=== PATIENT | female | born 1985 | race Caucasian/White ===

== ENCOUNTER 2023-10-15 22:55 | Inpatient (IN) | payer OTHER, SELFPAY ==
[2023-10-15 12:53] VITALS: BP 157/96
[2023-10-15 14:30] VITALS: BP 170/108
[2023-10-15 14:51] VITALS: BMI 17.2
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
[2023-10-15 15:37] LABS: % Basophils 0.2 % (0-2); % Immature Granulocytes 0.2 % (0-0.5); % Lymphocytes 24.9 % (20.5-51.1); % Neutrophils 63.7 % (42.2-75.2); Absolute Monocytes 0.9 10^3/uL (0.1-0.6); Absolute Neutrophils 5.2 10^3/uL (1.4-6.5); Hematocrit 35.1 % (37.0-47.0); Hemoglobin 12.5 g/dL (12.0-16.0); Mean Corp Hgb Conc. 35.6 g/dL (33.0-37.0); Mean Corpuscular Hgb 31.7 pg (27.0-31.0); Mean Corpuscular Volume 89.1 fL (81.0-99.0); Mean Platelet Volume 8.7 fL (7.4-10.4); Nucleated Red Blood Cells % 0 %; Platelet Count 213 10^3/uL (130-400); Red Blood Cell Count 3.94 10^6/uL (4.20-5.40); Red Cell Dist. Width 13.7 % (11.5-14.5); White Blood Cell Count 8.1 10^3/uL (4.8-10.8)
[2023-10-15] MEDS: THIAMINE INJECTION 100 MG IV (15:41)
[2023-10-15] MEDS: ZOFRAN 4 MG IV ×2 (15:41→22:07)
[2023-10-15] MEDS: ATIVAN 1 MG IV ×2 (15:44→20:46)
[2023-10-15] MEDS: NSS 1000 IV (15:44)
[2023-10-15 15:54] LABS: HCG, Serum Qualitative Screen Negative
[2023-10-15 16:00] LABS: ALT (SGPT) 18 U/L (0-35); AST (SGOT) 33 U/L (14-36); Albumin 4.6 g/dl (3.5-5.0); Alkaline Phosphatase 79 U/L (38-126); Blood Urea Nitrogen 3 mg/dl (7-17); Calcium 8.6 mg/dl (8.4-10.2); Carbon Dioxide 27 mmol/L (22-30); Chloride 99 mmol/L (98-107); Estimated Creatinine Clearance 83 ml/min; Glucose 134 mg/dl (70-99); Lipase 53 U/L (23-300); Magnesium 1.7 mg/dl (1.6-2.3); Potassium 3.3 mmol/L (3.5-5.1); Sodium 136 mmol/L (135-145); Total Bilirubin 0.3 mg/dl (0.2-1.3); Total Protein 7.7 g/dl (6.3-8.2); eGFR > 60.00
[2023-10-15 16:12] LABS: Alcohol 434 mg/dl
[2023-10-15] MEDS: KCL 40 MEQ PO (16:18)
[2023-10-15] MEDS: NICODERM TRANSDERMAL 14 MG TRANSDERM (17:05)
[2023-10-15 20:41] VITALS: BP 150/108
[2023-10-15 21:45] VITALS: BP 121/96
[2023-10-15 22:00] VITALS: BP 122/91
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
[2023-10-15 23:00] VITALS: BP 126/91
[2023-10-15] MEDS: ATIVAN 1 MG PO (23:17)
[2023-10-15] MEDS: PHENOBARBITAL 104 MG IV (23:32)
[2023-10-16] VITALS (12 sets, daily range): BP systolic 117–147; BP diastolic 77–111; BMI 18.1
[2023-10-16 01:10] LABS: Troponin I < 0.012 ng/ml
--- NOTE | 2023-10-16 01:26 | PTCARENOTE ---
Received pt from ED via stretcher. Pt able to ambulate to bed with assistance. Pt unsteady on feet. Pt appears drowsy but orientedx3. MSAS currently 5. 1mg PO Ativan administered per protocol (see MAR). Pt ordered 1:1 suicide risk. When asked
if currently having any SI, she states 'I don't think I should talk about that'. Pt is allowed to have phone; wearing the blue suicide scrubs instead of hospital gown for safety. Pt c/o nausea but no vomiting. 1:1 at bedside and pt resting in bed
calmly.
[2023-10-16] MEDS: ZOFRAN 4 MG IV ×4 (01:33→22:47)
[2023-10-16] MEDS: ATIVAN 1 MG PO ×3 (01:33→12:57)
[2023-10-16] MEDS: NSS 1000 IV ×2 (01:33→15:48)
[2023-10-16] MEDS: TYLENOL 650 MG PO (03:21)
[2023-10-16 03:36] LABS: % Basophils 0.3 % (0-2); % Eosinophils 0.4 % (0-6); % Immature Granulocytes 0.3 % (0-0.5); % Lymphocytes 22.8 % (20.5-51.1); % Monocytes 10.2 % (1.7-9.3); Absolute Lymphocytes 1.6 10^3/uL (1.2-3.4); Absolute Monocytes 0.7 10^3/uL (0.1-0.6); Absolute Neutrophils 4.5 10^3/uL (1.4-6.5); Hematocrit 32.3 % (37.0-47.0); Mean Corp Hgb Conc. 34.1 g/dL (33.0-37.0); Mean Corpuscular Hgb 31.3 pg (27.0-31.0); Mean Platelet Volume 8.9 fL (7.4-10.4); Nucleated Red Blood Cells % 0 %; Platelet Count 193 10^3/uL (130-400); Red Blood Cell Count 3.51 10^6/uL (4.20-5.40); Red Cell Dist. Width 13.7 % (11.5-14.5); White Blood Cell Count 6.9 10^3/uL (4.8-10.8)
[2023-10-16 03:47] LABS: Lactic Acid 1.5 mmol/L (0.7-2.0)
[2023-10-16 04:04] LABS: Magnesium 1.4 mg/dl (1.6-2.3)
[2023-10-16 04:05] LABS: ALT (SGPT) 16 U/L (0-35); AST (SGOT) 30 U/L (14-36); Albumin 3.8 g/dl (3.5-5.0); Alkaline Phosphatase 72 U/L (38-126); Blood Urea Nitrogen 3 mg/dl (7-17); Calcium 8.2 mg/dl (8.4-10.2); Carbon Dioxide 25 mmol/L (22-30); Chloride 100 mmol/L (98-107); Estimated Creatinine Clearance 97 ml/min; Glucose 86 mg/dl (70-99); Potassium 3.8 mmol/L (3.5-5.1); Sodium 132 mmol/L (135-145); Total Bilirubin 0.4 mg/dl (0.2-1.3); Total Protein 6.6 g/dl (6.3-8.2); eGFR > 60.00
[2023-10-16] MEDS: MAGNESIUM SULFATE 100 IV (05:10)
[2023-10-16] MEDS: PHENOBARBITAL 97.5 MG IV ×3 (07:13→22:37)
[2023-10-16] MEDS: NSS (PRESERVATIVE FREE) 10 ML IV (07:16)
[2023-10-16] MEDS: PROTONIX IV 40 MG IV (07:16)
[2023-10-16] MEDS: THIAMINE INJECTION 200 MG IV ×2 (07:20→19:30)
--- NOTE | 2023-10-16 07:55 | W.PN.HOSP.TC ---
Today's Communication/Plan
-
alcohol withdrawal protocol
F/U further psychiatry recommendations
Assessment / Plan
Assessment / Plan
38-year-old female past medical history of alcohol abuse, PTSD, here for medical clearance for alcohol detox.� She has been drinking 1.5 L of vodka per day.� Her last drink was at 12 PM.
# Alcohol withdrawal
-Alcohol level 434
-Phenobarbital protocol
-Alcohol withdrawal protocol
-Thiamine and folate
-IV fluids
-Case management consulted
# Hypokalemia
# Hypomagnesemia
-replete
# Passive suicidal ideation
-Non suicidal currently
-One-to-one sitter
-Psychiatry consulted
# Chest pain likely musculoskeletal
-EKG shows possible ectopic rhythm
-Check troponin --> negative
# Abdominal pain likely alcoholic gastritis
-Empiric Protonix for alcoholic gastritis
PTSD
-Not taking any of her psychiatric medications, continue to hold
Active smoker
-Nicotine patch
Marijuana user
Full code
DVT prophylaxis�heparin
Regular diet
Anticipated Discharge: 24 - 48 hours
Subjective/Interval History
-
Date of Service: October 16, 2023
feels better today, remains sedated from ativan
Objective Data
-
Labs:
Laboratory Results
10/16/23
03:25
WBC 6.9
Hgb 11.0 L
Hct 32.3 L
Plt Count 193
Sodium 132 L
Potassium 3.8
Chloride 100
Carbon Dioxide 25
BUN 3 L
Creatinine 0.5 L
Glucose 86
Calcium 8.2 L
Total Bilirubin 0.4
AST 30
ALT 16
Alkaline Phosphatase 72
Vital Signs:
Vital Signs
Temp Pulse Resp BP Pulse Ox
100.5 F H 92 18 117/77 95
10/16/23 03:24 10/16/23 06:00 10/16/23 06:00 10/16/23 06:00 10/16/23 06:00
Review of Systems
-
History Source: Patient
All other systems: Reviewed and negative
Physical Exam
-
General: Other (sedated but arousable )
Respiratory: Clear to Auscultation; Negative Wheezes
Cardiac: S1/S2
GI: Soft and Nontender
Skin: Warm and Dry; Negative Rash
Neuro: Sedated
Psych: Calm
Data Reviewed
-
Diagnostic Radiology: Report Reviewed by me
Labs: Labs Reviewed by me
[2023-10-16] MEDS: HEPARIN 5000 UNITS SC ×2 (09:09→19:30)
[2023-10-16] MEDS: MAGNESIUM SULFATE 50 IV (09:09)
[2023-10-16] MEDS: FOLVITE 1 MG PO (09:14)
[2023-10-16] MEDS: NICODERM TRANSDERMAL 14 MG TRANSDERM (09:14)
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
--- NOTE | 2023-10-16 11:32 | PTCARENOTE ---
Pt seen by Psych one to one dc
--- NOTE | 2023-10-16 13:08 | PTCARENOTE ---
counseling case manager spoke with pt, pt became anxious
--- NOTE | 2023-10-16 15:21 | CM ---
Patient with Hx PTSD with Dx Alcohol withdrawal, Passive suicidal ideation, Chest pain likely musculoskeletal, Abdominal pain likely alcoholic gastritis. Tox Screen- Etoh 434. Psych Consult noted. Room air. Receiving IVF, IV Phenobarb, IV Ativan
prn. MSAS protocol. Unsteady on her feet per nursing.
Met with patient;
the patient is homeless and has been staying at [facility] in [place] with her jessy Ball for about one week.
The patient says she has the finances to return to [facility] at discharge.
The patient has been independent in ADLs and ambulation.
She has no DME or VN.
The patient has a Gastroenterology Manager Allie through [facility] an agency in place due to her child in foster care.
Patient stated she became anxious after briefly talking and requested nurse due to feeling anxious---> nurse notified. CM ended interview as patient seems emotionally fragile and patient in agreement.
Request to Dr Rosario for PT Eval.
Plan follow up after PT Eval.
Plan d/c to [facility].
[2023-10-16] MEDS: ATIVAN 2 MG IV (15:40)
--- NOTE | 2023-10-16 22:49 | PTCARENOTE ---
Received pt at change of shift. Pt impulsive at start of shift in regard to getting out of bed without assistance to use the bathroom. Pt unsteady on feet and almost tore out her IV in the process. Educated the pt on the importance of using the
call silvestre before getting out of bed for safety reasons.. Pt states she understands. Pt calm and able to follow direction when given. Slightly diaphoretic, mild tremors, and anxious. MSAS 5 at start of shift. Pt resting in bed with call silvestre in
reach.
[2023-10-17] VITALS (13 sets, daily range): BP systolic 128–147; BP diastolic 87–109; PULSE 96
[2023-10-17] MEDS: NSS 1000 IV (04:56)
[2023-10-17 05:20] LABS: Blood Urea Nitrogen < 2 mg/dl (7-17); Calcium 8.5 mg/dl (8.4-10.2); Carbon Dioxide 27 mmol/L (22-30); Chloride 97 mmol/L (98-107); Estimated Creatinine Clearance 97 ml/min; Glucose 79 mg/dl (70-99); Magnesium 1.7 mg/dl (1.6-2.3); Phosphorus 3.6 mg/dl (2.5-4.5); Potassium 4.4 mmol/L (3.5-5.1); Sodium 130 mmol/L (135-145); eGFR > 60.00
--- NOTE | 2023-10-17 07:53 | W.PN.HOSP.TC ---
Today's Communication/Plan
-
see plan
Assessment / Plan
Assessment / Plan
38-year-old female past medical history of alcohol abuse, PTSD, here for medical clearance for alcohol detox.� She has been drinking 1.5 L of vodka per day.� Her last drink was at 12 PM.
# Alcohol withdrawal
-Alcohol level 434
-Phenobarbital protocol
-Alcohol withdrawal protocol
-Thiamine and folate
-IV fluids
-Case management consulted
-psychiatry consult appreciated
-patient willing to go to inpatient rehab
# Hypokalemia
# Hypomagnesemia
-repleted
Hyponatremia
-stop further fluids and monitor
# Passive suicidal ideation
-Non suicidal currently
-One-to-one sitter
-Psychiatry consulted
# Chest pain likely musculoskeletal
-EKG shows possible ectopic rhythm
-Check troponin --> negative
# Abdominal pain likely alcoholic gastritis
-Empiric Protonix for alcoholic gastritis
PTSD
-Not taking any of her psychiatric medications, continue to hold
Active smoker
-Nicotine patch
Marijuana user
Full code
DVT prophylaxis�heparin
Regular diet
Anticipated Discharge: 24 - 48 hours
Subjective/Interval History
-
Date of Service: October 17, 2023
patient feels tired but okay
wants to go to inpatient rehab
Objective Data
-
Labs:
Laboratory Results
10/17/23
04:17
Sodium 130 L
Potassium 4.4
Chloride 97 L
Carbon Dioxide 27
BUN < 2 L
Creatinine 0.5 L
Glucose 79
Calcium 8.5
Vital Signs:
Vital Signs
Temp Pulse Resp BP Pulse Ox
98.3 F 78 17 139/100 98
10/17/23 06:45 10/17/23 06:00 10/17/23 06:00 10/17/23 06:00 10/16/23 18:00
I&O
10/16/23 10/17/23 10/18/23
06:59 06:59 06:59
Intake Total 1929
Balance 1929
Review of Systems
-
History Source: Patient
All other systems: Reviewed and negative
Physical Exam
-
General: Other (sedated but arousable )
Respiratory: Clear to Auscultation; Negative Wheezes
Cardiac: S1/S2
GI: Soft and Nontender
Skin: Warm and Dry; Negative Rash
Neuro: Sedated
Psych: Calm
Data Reviewed
-
Diagnostic Radiology: Report Reviewed by me
Labs: Labs Reviewed by me
[2023-10-17] MEDS: ZOFRAN 4 MG IV (08:21)
[2023-10-17] MEDS: THIAMINE INJECTION 200 MG IV ×2 (08:21→19:36)
[2023-10-17] MEDS: HEPARIN 5000 UNITS SC ×2 (08:22→19:39)
[2023-10-17] MEDS: FOLVITE 1 MG PO (08:22)
[2023-10-17] MEDS: PROTONIX IV 40 MG IV (08:22)
[2023-10-17] MEDS: PHENOBARBITAL 97.5 MG IV ×3 (08:22→22:23)
[2023-10-17] MEDS: NICODERM TRANSDERMAL 14 MG TRANSDERM (08:22)
[2023-10-17] MEDS: NSS (PRESERVATIVE FREE) 10 ML IV (08:22)
[2023-10-17] MEDS: ATIVAN 1 MG PO ×2 (12:21→20:03)
--- NOTE | 2023-10-17 13:05 | CM ---
Addendum entered by Brie Perry RN 10/17/23 17:31:
Spoke with patient about housing. She has the [facility] information and already reached out to them. She has also contacted [facility] and they were not able to help her. Her boyfriend is also looking into housing resources.
Plan referral to [facility] when medically cleared.
Original Note:
Patient with Hx PTSD with Dx Alcohol withdrawal, Passive suicidal ideation, Chest pain likely musculoskeletal, Abdominal pain likely alcoholic gastritis. Tox Screen- Etoh 434. Psych Consult noted. Room air. Receiving IVF, IV Phenobarb, IV Ativan
prn. MSAS protocol. PT Eval pending.
Met with patient and offered EPIFANIO and patient agreed to the referral. She said that she has a Mobile Engagement/MES Worker Mady from [facility] [place] who was helping her get into [facility]. She agrees to a referral to [facility].
Patient called DINESH Earl on speaker phone, while CM was in the room; informed her that we will be making a referral to [facility].
Spoke with EPIFANIO Garrett; she saw the patient today who agreed to [facility] followed by [facility] [place].
Spoke with nurse Joanie; patient still unsteady on her feet when up to bathroom.
Spoke with QUE Alonso; she will see the patient today.
Spoke with [facility] ph [phone] (dual Dx program) ; they do have an available female bed and can take her referral for psych/Etoh rehab whenever she is medically cleared. Alexandra prefers CM wait to make the referral when
medically cleared.
Message to Blessing Rosario & Onel that [facility] is interested and can make referral once medically cleared.
Plan referral to [facility] when medically cleared.
--- NOTE | 2023-10-17 14:15 | W.PN.UPDATE ---
Update Note
Progress Note Update
patient seen chart reviewed.discussed w nursing patient was with her out pt d and a counselor when i first arrived and seemed very comfortable and supported with her. she is doing relatively well although still in the throes of withdrawal needing
multiple doses of ativan and still on phenobarb taper. she is very much interested in going to in pt rehab. [facility] tent[facility] accepted her but she is still a little unsteady and needs more time for w/d process. would continue to hold off on
wellbutrin at this point. discussed w patient the importance of working on identifying relapse triggers and developing a plan to deal with them. psych will follow
--- NOTE | 2023-10-17 19:24 | PTCARENOTE ---
Assumed care of patient at beginning of this shift from previous RN. MSAS continued Q4h; required ativan only 1 time this shift. Worked with PT; now has a steady gait. Patient remained cooperative and pleasant throughout shift. See worklist for full
assessment, MSAS and vital signs; see MAR for med administration.
[2023-10-18] VITALS (10 sets, daily range): BP systolic 109–124; BP diastolic 80–108
[2023-10-18 04:37] LABS: Blood Urea Nitrogen 4 mg/dl (7-17); Calcium 8.8 mg/dl (8.4-10.2); Carbon Dioxide 24 mmol/L (22-30); Chloride 100 mmol/L (98-107); Estimated Creatinine Clearance 97 ml/min; Glucose 83 mg/dl (70-99); Magnesium 1.6 mg/dl (1.6-2.3); Sodium 130 mmol/L (135-145); eGFR > 60.00
--- NOTE | 2023-10-18 07:27 | W.PN.HOSP.TC ---
Today's Communication/Plan
-
alcohol withdrawal protocol
phenobarb taper
transfer to tele
Assessment / Plan
Assessment / Plan
38-year-old female past medical history of alcohol abuse, PTSD, here for medical clearance for alcohol detox.� She has been drinking 1.5 L of vodka per day.� Her last drink was at 12 PM.
# Alcohol withdrawal
-Alcohol level 434
-Phenobarbital protocol
-Alcohol withdrawal protocol
-Thiamine and folate
-IV fluids off
-Case management consulted
-psychiatry consult appreciated
-patient willing to go to inpatient rehab
-OK for transfer to tele
# Hypokalemia
# Hypomagnesemia
-repleted
Hyponatremia
-stop further fluids and monitor
# Passive suicidal ideation
-Non suicidal currently
-One-to-one sitter
-Psychiatry consulted
# Chest pain likely musculoskeletal
-EKG shows possible ectopic rhythm
-Check troponin --> negative
# Abdominal pain likely alcoholic gastritis
-Empiric Protonix for alcoholic gastritis
PTSD
-Not taking any of her psychiatric medications, continue to hold
Active smoker
-Nicotine patch
Marijuana user
Full code
DVT prophylaxis�heparin
Regular diet
Anticipated Discharge: 24 - 48 hours
Subjective/Interval History
-
Date of Service: October 18, 2023
required ativan last night
interested in inpatient rehab
Objective Data
-
Labs:
Laboratory Results
10/18/23
03:29
Sodium 130 L
Potassium 4.0
Chloride 100
Carbon Dioxide 24
BUN 4 L
Creatinine 0.4 L
Glucose 83
Calcium 8.8
Vital Signs:
Vital Signs
Temp Pulse Resp BP Pulse Ox
97.6 F 71 18 124/92 98
10/18/23 03:35 10/18/23 05:13 10/18/23 05:13 10/18/23 05:13 10/18/23 05:35
I&O
10/17/23 10/18/23 10/19/23
06:59 06:59 06:59
Intake Total 1929
Balance 1929
Review of Systems
-
History Source: Patient
All other systems: Reviewed and negative
Physical Exam
-
General: Other (sedated but arousable )
Respiratory: Clear to Auscultation; Negative Wheezes
Cardiac: S1/S2
GI: Soft and Nontender
Skin: Warm and Dry; Negative Rash
Neuro: Sedated
Psych: Calm
Data Reviewed
-
Diagnostic Radiology: Report Reviewed by me
Labs: Labs Reviewed by me
[2023-10-18] MEDS: MAGNESIUM SULFATE 50 IV (09:53)
[2023-10-18] MEDS: NICODERM TRANSDERMAL 14 MG TRANSDERM (09:54)
[2023-10-18] MEDS: FOLVITE 1 MG PO (09:54)
[2023-10-18] MEDS: PROTONIX IV 40 MG IV (09:55)
[2023-10-18] MEDS: HEPARIN 5000 UNITS SC ×2 (09:55→21:10)
[2023-10-18] MEDS: THIAMINE INJECTION 200 MG IV ×2 (09:55→21:10)
[2023-10-18] MEDS: NSS (PRESERVATIVE FREE) 10 ML IV (09:55)
[2023-10-18] MEDS: LUMINAL 64.7999999999999972 MG PO ×3 (12:06→21:07)
--- NOTE | 2023-10-18 13:39 | PTCARENOTE ---
Patient is for transfer to Tele today. Patient is oriented, compliant with plan of care, anxious at times. Educated about plan of care, she verbalized understanding and stated that she is going to another facility for rehab. Shower completed today.
Patient has fair appetite. MSAS per protocol.
--- NOTE | 2023-10-18 15:50 | PTCARENOTE ---
Patient received in room 421 from IMU. Patient oriented to room. Call silvestre in reach.
--- NOTE | 2023-10-18 16:02 | PTCARENOTE ---
Report for transfer given to Enma QUINN. Patient transported by RN to room 421 on telemetry monitoring. All belongings in room sent with patient. Security returned belongings to patient with the exception of a box of cigarettes. Endorsed to Enma QUINN.
[2023-10-18] MEDS: MELATONIN 3 MG PO (21:44)
[2023-10-19 02:50] VITALS: BP 118/84
[2023-10-19 06:44] LABS: Blood Urea Nitrogen 11 mg/dl (7-17); Calcium 9.2 mg/dl (8.4-10.2); Carbon Dioxide 26 mmol/L (22-30); Chloride 99 mmol/L (98-107); Glucose 88 mg/dl (70-99); Magnesium 1.6 mg/dl (1.6-2.3); Potassium 4.1 mmol/L (3.5-5.1); Sodium 131 mmol/L (135-145)
[2023-10-19 06:53] LABS: Estimated Creatinine Clearance 97 ml/min; eGFR > 60.00
[2023-10-19 07:00] VITALS: BP 135/85
[2023-10-19] MEDS: PROTONIX IV 40 MG IV (10:41)
[2023-10-19] MEDS: NSS (PRESERVATIVE FREE) 10 ML IV (10:42)
[2023-10-19] MEDS: LUMINAL 64.7999999999999972 MG PO (10:43)
[2023-10-19] MEDS: VITAMIN B1 100 MG PO ×2 (10:44→20:22)
[2023-10-19] MEDS: FOLVITE 1 MG PO (10:44)
[2023-10-19] MEDS: HEPARIN 5000 UNITS SC ×2 (10:49→20:21)
[2023-10-19] MEDS: NICODERM TRANSDERMAL 14 MG TRANSDERM (10:51)
[2023-10-19] MEDS: FLUSH (NSS) 1 FLUSH IV (10:51)
[2023-10-19 11:00] VITALS: BP 119/82
--- NOTE | 2023-10-19 12:06 | W.PN.HOSP.TC ---
Today's Communication/Plan
-
phenobarb taper
psych recs for resuming home regimen
hopefully inpatient rehab in next 1-2 days
Assessment / Plan
Assessment / Plan
38-year-old female past medical history of alcohol abuse, PTSD, here for medical clearance for alcohol detox.� She has been drinking 1.5 L of vodka per day.� Her last drink was at 12 PM.
# Alcohol withdrawal
-Alcohol level 434
-Phenobarbital protocol --> will decrease dose today x 2 more doses so patient completes course sooner and can hopefully go to inpatient rehab in next 1-2 days
-MSAS, patient has not required ativan in over 24 hours
-Thiamine and folate
-IV fluids off
-Case management consulted
-psychiatry consult appreciated
-patient willing to go to inpatient rehab
-OK for transfer to tele
# Hypokalemia
# Hypomagnesemia
-repleted
Hyponatremia
-stop further fluids and monitor
PTSD
Passive suicidal ideation
-Non suicidal currently
-Psychiatry consult appreciated
-her BILINGUAL ACCOUNT MANAGER meds have been held - F/U psych recs on resuming
# Chest pain likely musculoskeletal
-EKG shows possible ectopic rhythm
-Check troponin --> negative
# Abdominal pain likely alcoholic gastritis
-Empiric Protonix for alcoholic gastritis
Active smoker
-Nicotine patch
Marijuana user
Full code
DVT prophylaxis�heparin
Regular diet
Anticipated Discharge: 24 - 48 hours
Subjective/Interval History
-
Date of Service: October 19, 2023
feels depressed
no tremors
no chest pain or shortness of breath
Objective Data
-
Labs:
Laboratory Results
10/19/23
05:56
Sodium 131 L
Potassium 4.1
Chloride 99
Carbon Dioxide 26
BUN 11
Creatinine 0.6
Glucose 88
Calcium 9.2
Vital Signs:
Vital Signs
Temp Pulse Resp BP Pulse Ox
98.1 F 77 16 119/82 100
10/19/23 11:00 10/19/23 11:00 10/19/23 11:00 10/19/23 11:00 10/19/23 11:00
I&O
10/18/23 10/19/23 10/20/23
06:59 06:59 06:59
Intake Total 70 / 70 600 / 600
Balance 70 / 70 600 / 600
Review of Systems
-
History Source: Patient
All other systems: Reviewed and negative
Physical Exam
-
General: Other (sedated but arousable, more conversant today )
Respiratory: Clear to Auscultation; Negative Wheezes
Cardiac: S1/S2
GI: Soft and Nontender
Skin: Warm and Dry; Negative Rash
Neuro: Sedated
Psych: Calm
Data Reviewed
-
Diagnostic Radiology: Report Reviewed by me
Labs: Labs Reviewed by me
[2023-10-19 16:59] VITALS: BP 137/88
[2023-10-19] MEDS: LUMINAL 32.3999999999999986 MG PO ×2 (18:09→23:39)
[2023-10-19 19:00] VITALS: BP 112/80
--- NOTE | 2023-10-19 19:27 | W.PN.UPDATE ---
Update Note
Progress Note Update
Pt seen & evaluated at bedside. Discussed prior medication hx as all outpt meds have been held due to pt not taking them for several weeks. Describes hx of periods of few days to a week (at most) at a time of decreased need for sleep, increased
energy, increased talkativeness, impulsivity, risk taking, euphoria - noticed by others & always followed by a severe depression.
Reports good response to Haldol but with significant EPS, had to take both benadryl & cogentin with it. Was prescribed seroquel 125mg, minimal benefit but when took 100mg TID found this improved mood stability partially, denies feeling sedated on
it. Discussed that seroquel can be titrated to higher dose so given known positive response would resume & titrate up as needed/tolerated. Appetite did increase but pt wants to gain some weight - is aware of metabolic disturbance risk.
Also found prazosin 1mg helpful for sleep (improved nightmares) though eventually stopped working - discused trial of 2mg , discussed risk of orthostasis.
Phenobarb taper accelerated as no signs of w/d and pt cannot go to rehab until off phenobarb
seroquel 100mg TID + prazosin 2mg HS
seroquel 25mg BID PRN anxiety/distress + hydroxyzine 50mg BID PNR anxiety (was previously taki ng 100mg PRN but would not add on such high load at this time)
remains open to rehab placement for EtOH abuse
[2023-10-19] MEDS: ZOFRAN 4 MG IV (20:29)
[2023-10-19 23:00] VITALS: BP 119/84
[2023-10-19] MEDS: MINIPRESS 2 MG PO (23:39)
[2023-10-19] MEDS: SEROQUEL 100 MG PO (23:41)
[2023-10-20 03:00] VITALS: BP 91/59
[2023-10-20] MEDS: FOLVITE 1 MG PO (07:55)
[2023-10-20] MEDS: HEPARIN 5000 UNITS SC (07:55)
[2023-10-20] MEDS: NICODERM TRANSDERMAL 14 MG TRANSDERM (08:01)
[2023-10-20] MEDS: VITAMIN B1 100 MG PO (08:02)
[2023-10-20] MEDS: NSS (PRESERVATIVE FREE) 10 ML IV (08:02)
[2023-10-20] MEDS: SEROQUEL 100 MG PO ×2 (08:02→16:11)
[2023-10-20] MEDS: PROTONIX IV 40 MG IV (08:02)
[2023-10-20 08:03] VITALS: BP 104/71
--- NOTE | 2023-10-20 08:42 | W.PN.HOSP.TC ---
Today's Communication/Plan
-
Discharge today
Assessment / Plan
Assessment / Plan
Physical Exam
General: Not in acute distress
Respiratory: Clear to Auscultation; Negative Wheezes
Cardiac: S1/S2
GI: Soft and Nontender. Positive bowel sounds.
Skin: Warm and Dry.
Neuro: Alert and Awake. Appropriately responding to questions.
Psych: Calm

Assessment/Plan
# Alcohol withdrawal
-Alcohol level 434
-Phenobarbital protocol --> completed phenobarb taper
-MSAS protocol
-Thiamine and folate
-IV fluids off
-Case management consulted
-psychiatry consult appreciated
-patient willing to go to inpatient rehab
# Hypokalemia
# Hypomagnesemia
-repleted
#Hyponatremia
-stop further fluids and monitor
#PTSD
#Passive suicidal ideation
-Non suicidal currently
-Psychiatry consult appreciated
-her VICE PRESIDENT OF ADVERTISING meds have been held
-Per psychiatry: seroquel 100mg TID + prazosin 2mg HS
-Also per psychiatry: seroquel 25mg BID PRN anxiety/distress + hydroxyzine 50mg BID PRN anxiety (was previously taking 100mg PRN but would not add on such high load at this time)
# Chest pain likely musculoskeletal
-EKG shows possible ectopic rhythm
-Checked troponin --> negative
# Abdominal pain likely alcoholic gastritis
-Empiric Protonix for alcoholic gastritis
#Active smoker
-Nicotine patch
#Marijuana user
Full code
DVT prophylaxis�heparin
Regular diet
More than 30 minutes spent in discharge including
Final examination of the patient
Summarizing hospital stay
Instructions for continuing care to all relevant caregivers
Preparation of discharge records, prescriptions, and referral forms
Total time spent (in minutes): 41
Anticipated Discharge: Today
Subjective/Interval History
-
Date of Service: October 20, 2023
Patient was seen and examined. She reported no new symptoms or complaints.
Objective Data
-
Vital Signs:
Vital Signs
Temp Pulse Resp BP Pulse Ox
97.7 F 77 16 91/59 98
10/20/23 03:00 10/20/23 03:00 10/20/23 03:00 10/20/23 03:00 10/20/23 03:00
I&O
10/19/23 10/20/23 10/21/23
06:59 06:59 06:59
Intake Total 600 / 600 1680 / 1680
Balance 600 / 600 1680 / 1680
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
--- NOTE | 2023-10-20 11:56 | W.PN.UPDATE ---
Update Note
Progress Note Update
Pt seen, chart reviewed. Pt alert, calm, cooperative. She reports depressed mood, although she states she was in a manic state when at [facility] rehab, left there AMA, then relapsed on alcohol. She reports passive SI, denies intent to act.
Affect is dysphoric, and somewhat flat. Pt c/o ongoing PTSD symptoms- nightmares, flashbacks. Speech and thought are coherent/clear/goal-directed. No overt signs of psychosis, no signs of jhonny. Pt states she was prescribed Haldol at [facility], states it helped jhonny but she is scared of the potential side effects. Pt now on Seroquel 100 mg TID, just titrated up to that dose today, seems to be tolerating it okay. Pt states she is motivated to follow through with the plan that
was formulated with her treatment navigator- to go to inpatient psych at [facility], then return to [facility] to complete alcohol rehab.
Imp: Unspecified Bipolar d/o, depressed
PTSD, chronic
Alcohol Use d/o, severe
Rec: as above, will pursue referral to psych facility for stabilization on a voluntary basis, with expectation to go from there back to alcohol rehab. Reviewed plan with case management
will follow
[2023-10-20 12:00] VITALS: BP 128/72
--- NOTE | 2023-10-20 12:00 | PTOTSP ---
PATIENT ABLE TO FUNCTION INDEPENDENTLY ON LEVEL SURFACES WELL ELEVATIONS REQUIRING NO FURTHER SKILLED P.T. SERVICES AT THIS TIME. WILL DISCHARGE FROM P.T.
--- NOTE | 2023-10-20 15:40 | W.DS.TRANS ---
DC Summary - Stockroom Attendant
-
Discharge Instructions:
Discharge Diagnosis/Procedures #Alcohol withdrawal
#Hypokalemia
#Hypomagnesemia
#Hyponatremia
#Post Traumatic Stress Disorder
#Passive suicidal ideation
#Chest pain likely musculoskeletal
#Abdominal pain likely alcoholic gastritis
#Active smoker
#Marijuana user
Diet Regular
Activity As tolerated
Driving Restrictions No driving
Instructions:
Stand-Alone Forms:
Changes to Home Medications: Yes
Discharge Medications:
DC Medications w/original date entered in [employer]
benztropine 1 mg tablet 1 mg PO DAILY PRN tremors 10/15/23
fluoxetine 20 mg capsule 20 mg PO DAILY Mental Health/Anxiety 10/15/23
vitamin B complex 1 tab PO DAILY Supplement 10/15/23
folic acid 1 mg tablet 1 mg PO DAILY #30 tabs 10/20/23
hydroxyzine HCl 25 mg tablet 50 mg PO BIDPRN PRN anxiety #60 tabs 10/20/23
nicotine 14 mg/24 hr daily transdermal patch 14 mg transdermal DAILY #28 ea 10/20/23
prazosin 1 mg capsule 2 mg PO HS #60 caps 10/20/23
quetiapine 100 mg tablet 100 mg PO TID #90 tabs 10/20/23
quetiapine 25 mg tablet 25 mg PO BIDPRN PRN anxiety/distress #60 tabs 10/20/23
thiamine HCl (vitamin B1) 100 mg tablet 100 mg PO BID #60 tabs 10/20/23
Home Medication Changes
New medications are:
Folic Acid, Thiamine, Hydroxyzine, Nicotine Patch, Prazosin and Quetiapine
Holding until outpatient follow-up:
Benztropine and Fluoxetine
Stopped:
Old doses of Hydroxyzine, Prazosin, and Quetiapine
Pending Results: No
Total time spent discharging patient (in min): 41
[2023-10-20 16:09] VITALS: BP 118/83
[2023-10-20] MEDS: FLUZONE QUAD 2023-2024 SYRINGE 0.5 ML IM (16:10)
--- NOTE | 2023-10-23 09:38 | W.DCSUMMARY ---
Discharge Summary
Discharge Data
Date of Admission: 10/15/23
Date of Discharge: 10/20/23
Total time spent discharging patient (in min): 41
-
Pending Results: No
Hospital Course
38-year-old female past medical history of alcohol abuse, PTSD, presented for medical clearance for alcohol detox. She had been drinking 1.5 L of vodka per day. Her last drink was at 12 PM on the day of presentation. A shelter case manager checked on
patient yesterday and found her intoxicated with passive suicidal ideation and tried to get into [facility] but they require medical clearance first. Patient was started on Phenobarbital taper for alcohol withdrawal. Patient's electrolytes were
monitored and replaced. Psychiatry was consulted and recommended considering inpatient rehab. Patient's electrolytes were monitored and replaced. Patient phenobarbital was tapered off and she was able to be discharged to an inpatient rehab facility.
Psychiatry recommended seroquel, prazosin and reduced dose hydroxyzine on discharge given her little sleep, increase energy and impulsivity followed by severe depression.
Discharge Plan
-
Patient Disposition: Acute Rehab Facility
Discharge Diagnosis/Procedures: #Alcohol withdrawal
#Hypokalemia
#Hypomagnesemia
#Hyponatremia
#Post Traumatic Stress Disorder
#Passive suicidal ideation
#Chest pain likely musculoskeletal
#Abdominal pain likely alcoholic gastritis
#Active smoker
#Marijuana user
Condition: Fair
Diet: Regular
Activity: As tolerated
Driving Restrictions: No driving
Referrals:
NONE,* [Family Provider] - in less than 1 week
Prescriptions:
New
hydroxyzine HCl 25 mg Tablet
50 mg PO BIDPRN PRN (Reason: anxiety) Qty: 60 0RF
folic acid 1 mg Tablet
1 mg PO DAILY Qty: 30 1RF
prazosin 1 mg Capsule
2 mg PO HS Qty: 60 0RF
nicotine 14 mg/24 hr Patch 24 Hour
14 mg transdermal DAILY Qty: 28 0RF
quetiapine 100 mg Tablet
100 mg PO TID Qty: 90 0RF
quetiapine 25 mg Tablet
25 mg PO BIDPRN PRN (Reason: anxiety/distress) Qty: 60 0RF
thiamine HCl (vitamin B1) 100 mg Tablet
100 mg PO BID Qty: 60 0RF
Continued
vitamin B complex Tablet Extended Release
1 tab PO DAILY
Held
benztropine 1 mg tablet
1 mg PO DAILY PRN (Reason: tremors)
Hold Instructions: Resume on 10/31/23. Discuss with your outpatient physician(s) before resuming this medication.
fluoxetine 20 mg capsule
20 mg PO DAILY
Hold Instructions: Resume on 11/25/23. Only resume this medication if and only if your outpatient physician(s) say you can resume this medication.
Discontinued
quetiapine 25 mg tablet
25 mg PO BID
hydroxyzine pamoate 100 mg capsule
100 mg PO TID PRN (Reason: anxiety)
prazosin 1 mg capsule
1 mg PO HS
quetiapine 100 mg tablet
100 mg PO BID
Discharge Orders:
Discharge Patient (As Directed); Ordered 10/20/23
Ordered By: Volodymyr Deshpande
Discharge Date and Time
Discharge Date/Time: 10/20/23 18:03
Print Language: NIGERIEN
== END 2023-10-20 18:03 | DRG 897 ==
LOC: 4 WEST ACU 22:55
PROVIDERS: Emergency Medicine; Nurse Practitioner Family; Student in an Organized Health Care Education/Training Program; ADMITTING PHYSICIAN Hospitalist; ATTENDING PHYSICIAN Hospitalist; CONSULT PHYSICIAN Psychiatry & Neurology Psychiatry; EMERGENCY PHYSICIAN Emergency Medicine
DX: F10.239 Alcohol dependence with withdrawal, unspecified (principal); R45.851 Suicidal ideations; E87.1 Hypo-osmolality and hyponatremia; F17.210 Nicotine dependence, cigarettes, uncomplicated; Y90.8 Blood alcohol level of 240 mg/100 ml or more; E87.6 Hypokalemia; F43.12 Post-traumatic stress disorder, chronic; E83.42 Hypomagnesemia; K29.20 Alcoholic gastritis without bleeding
CPT/HCPCS: 80048; 80053; 82077; 83605; 83690; 83735; 84100; 84484; 84703; 85025; 87040; 90686; 93005; 96361; 96374; 96375; 96376; 97116; 97162; 99291; 99406; G0008